=== PATIENT | male | born 1975 | race Caucasian/White ===

== ENCOUNTER → 2019-02-13 | Outpatient (CLI) | payer BC, OTHER ==
[~2019-02-13] MED LIST: HYDR1TAB PO; LRT10T PO
[2019-02-13 15:55] LABS: BASOPHILS % (AUTO) 0 % (0-10); EOSINOPHILS # (AUTO) 0.2 10^3/uL (0.0-0.3); EOSINOPHILS % (AUTO) 3 % (0-10); HEMATOCRIT 44 % (40-54); HEMOGLOBIN 15.5 G/DL (13.3-17.7); LYMPHOCYTES # (AUTO) 2.6 X 10^3 (1.0-4.0); LYMPHOCYTES % (AUTO) 39 % (12-44); MEAN CORPUSCULAR HEMOGLOBIN 31 PG (25-34); MEAN CORPUSCULAR HGB CONC 36 G/DL (32-36); MEAN CORPUSCULAR VOLUME 87 FL (80-99); MEAN PLATELET VOLUME 10.5 FL (7.4-10.4); MONOCYTES # (AUTO) 0.6 X 10^3 (0.0-1.0); MONOCYTES % (AUTO) 10 % (0-12); NEUTROPHILS # (AUTO) 3.3 X 10^3 (1.8-7.8); NEUTROPHILS % (AUTO) 49 % (42-75); PLATELET COUNT 254 10^3/uL (130-400); WHITE BLOOD COUNT 6.7 10^3/uL (4.3-11.0)
[2019-02-13 16:15] LABS: ALANINE AMINOTRANSFERASE 25 U/L (0-55); ALBUMIN 4.8 GM/DL (3.2-4.5); ALKALINE PHOSPHATASE 54 U/L (40-136); BILIRUBIN,TOTAL 1.6 MG/DL (0.1-1.0); BUN/CREATININE RATIO 18; CALCIUM 9.9 MG/DL (8.5-10.1); CARBON DIOXIDE 26 MMOL/L (21-32); CHLORIDE 102 MMOL/L (98-107); CHOLESTEROL 157 MG/DL (< 200); CREATININE SERUM 1.13 MG/DL (0.60-1.30); GFR ESTIMATED > 60; GLUCOSE 100 MG/DL (70-105); HDL CHOLESTEROL 48 MG/DL (40-60); POTASSIUM 4.2 MMOL/L (3.6-5.0); SODIUM 138 MMOL/L (135-145); TOTAL PROTEIN 8.1 GM/DL (6.4-8.2); TRIGLYCERIDES 71 MG/DL (<150); VLDL CHOLESTEROL 14 MG/DL (5-40)
== END ==
LOC: LAB 15:44
PROVIDERS: ATTEND Nurse Practitioner Family
DX: Z00.00 Encounter for general adult medical examination without abnormal findings (principal); Z13.220 Encounter for screening for lipoid disorders
CPT/HCPCS: 36415; 80053; 80061; 84403; 84443; 85025

== ENCOUNTER → 2019-06-02 | Outpatient (CLI) | payer OTHER ==
[2019-06-05 09:56] LABS: BODY SURFACE AREA 2.39
[2019-06-05 10:11] LABS: CREATININE CRCL 1.29 MG/DL (0.60-1.30)
== END ==
LOC: LAB 16:56
PROVIDERS: ATTEND Internal Medicine Cardiovascular Disease
DX: I10 Essential (primary) hypertension (principal)
CPT/HCPCS: 36415; 82575; 83835

== ENCOUNTER → 2019-06-07 | Outpatient (CLI) | payer OTHER ==
--- NOTE | 2019-06-07 11:07 | Diagnostic Imaging Report ---
INDICATION: Hypertension. Right kidney measures 11.5 x 5.3 x 6.1 cm and the left kidney measures 11.4 x 6.2 x 7.1 cm. Cortical thickness and echogenicity is normal bilaterally. No calculi are seen. There is no hydronephrosis. Renal Doppler evaluation was performed. The renal arterial velocities are normal bilaterally. No velocity elevation is seen. Renal artery to aorta ratios are normal. Renal arterial waveforms are unremarkable. IMPRESSION: Unremarkable renal ultrasound and renal Doppler. No definite findings to suggest renal artery stenosis are identified. Dictated by: Dictated on workstation # [id number]
== END ==
LOC: CARD 07:49
PROVIDERS: ATTEND Internal Medicine Cardiovascular Disease
DX: E78.2 Mixed hyperlipidemia (principal); I10 Essential (primary) hypertension
CPT/HCPCS: 76770; 93306; 93975

== ENCOUNTER 2019-06-09 20:37 | Outpatient (CLI) | payer OTHER | END 2019-06-10 06:18 | disposition home or self-care (01) | LOC: SLEEP 20:37 | PROVIDERS: ATTEND Internal Medicine Cardiovascular Disease | DX: G47.33 Obstructive sleep apnea (adult) (pediatric) (principal); I10 Essential (primary) hypertension | CPT/HCPCS: 95810 ==

== ENCOUNTER → 2020-09-10 | Outpatient (CLI) | payer OTHER ==
--- NOTE | 2020-09-10 16:54 | Diagnostic Imaging Report ---
EXAM: TESTICULAR/SCROTUM ULTRASOUND. DATE: September 10, 2020. COMPARISON: None. INDICATION: 44-year-old male, left testicle pain. Concern for epididymitis. PROCEDURE: Two-dimensional grayscale, spectral Doppler, and color Doppler ultrasound examination of the testes was performed. FINDINGS: Right testicle: The right testicle has normal contour and is without mass. 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 There is normal blood flow to the right testicle. The right testicle measures 4.8 cm x 2.2 cm x 3.0 cm. Left testicle: The left testicle has normal contour and is without mass. 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 There is normal blood flow to the left testicle. The left testicle measures 5.0 cm x 2.6 cm x 3.1 cm. The right and left epididymides are unremarkable in appearance. IMPRESSION: 1. 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 2. No evidence of testicular torsion. 3. No evidence of orchitis or epididymitis. Dictated by: Dictated on workstation # [id number]
== END ==
LOC: RAD 15:09
PROVIDERS: ATTEND Urology
DX: N50.89 Other specified disorders of the male genital organs (principal)
CPT/HCPCS: 76870

== ENCOUNTER → 2021-09-17 | Outpatient (CLI) | payer OTHER ==
--- NOTE | 2021-09-17 18:59 | Diagnostic Imaging Report ---
PROCEDURE: US Scrotum. TECHNIQUE: Multiple real-time grayscale images were obtained over the scrotum in various projections bilaterally. INDICATION: Testicular microlithiasis. COMPARISON: Exam compared to 09/10/2020. FINDINGS: Right testicle is 4.6 cm and the left 4.7 cm, stable from prior. Few punctate scattered echogenic calcifications are present, noted incidentally. No solid or cystic testicular mass. The epididymides are unremarkable with a 3 mm simple benign cyst in the left epididymal head. No findings of torsion, orchitis, or epididymitis. IMPRESSION: Unremarkable scrotal Doppler ultrasound. Few scattered incidental testicular calcifications present with no evidence for neoplasm, infarct, torsion, or acute pathology. Dictated by: Dictated on workstation # [id number]
== END ==
LOC: RAD 09:00
PROVIDERS: ATTEND Urology
DX: N50.89 Other specified disorders of the male genital organs (principal)
CPT/HCPCS: 76870

== ENCOUNTER → 2022-03-02 | Outpatient (CLI) | payer OTHER | LOC: LABNPT 09:24 | PROVIDERS: ATTEND Family Medicine | DX: Z01.89 Encounter for other specified special examinations (principal) ==